=== PATIENT | female | born 1960 | race Caucasian/White ===

== ENCOUNTER 2022-03-11 18:42 | Emergency (ER) | payer SELFPAY ==
[~2022-03-11] VITALS: Ht 157.5 cm; Wt 68.0 kg
[~2022-03-11 18:42] MED LIST: BUPROPION HCL150 M1 OR; BUPROPION300 MG PO; FIORICET PO; LEVOTHYROXIN50 MCG PO; LEXAPRO20 MG PO; PRAVASTATIN20 MG PO; PRILOSEC40 MG PO; TYLENOL500 MG OR; WELLBUTRIN XL PO; ZOFRAN ODT4 MG PO; ZOLPIDEM10 M1 PO
[2022-03-11 18:52] VITALS: BP 128/103
[2022-03-11 18:54] VITALS: BP 147/87
[2022-03-11 19:00] VITALS: BP 130/78
[2022-03-11 19:44] LABS: HEMATOCRIT 33.2 % (37.0-47.0); HEMOGLOBIN 10.8 g/dl (12.0-16.0); IMMATURE GRANULOCYTES 0.2 % (0.0-5.0); MEAN CELL VOLUME 88.3 fL CALC (80.0-100.0); MEAN CORPUSCULAR HGB 28.7 pG CALC (26.0-32.0); MEAN CORPUSCULAR HGB CONC 32.5 g/dL CAL (32.0-36.0); NEUT# 1.38 thou/uL (2.00-7.15); RED BLOOD COUNT 3.76 mill/uL (4.20-5.60); RED CELL DISTRI WIDTH 13.2 % (11.5-15.5)
[2022-03-11 20:00] VITALS: BP 136/68
[2022-03-11 20:44] LABS: URINE BILIRUBIN - DIPSTICK NEGATIVE (NEGATIVE); URINE BLOOD DIPSTICK NEGATIVE (NEGATIVE); URINE COLOR YELLOW; URINE GLUCOSE - DIPSTICK NEGATIVE (NEGATIVE); URINE KETONE NEGATIVE (NEGATIVE); URINE PH 6.5 (4.5-8.0); URINE PROTEIN - DIPSTICK NEGATIVE (NEG-TRACE); URINE SPECIFIC GRAVITY 1.015; URINE UROBILINOGEN - DIPSTICK 0.2 E.U./dL (0.2)
[2022-03-11 20:45] LABS: URINE LEUK ESTERASE MODERATE (NEGATIVE); URINE NITRITE - DIPSTICK NEGATIVE (Negative)
[2022-03-11 20:57] LABS: URINE RBC 0-2 RBC/hpf (0-5); URINE SQUAMOUS EPITHELIAL CELL FEW EPI/hpf (0-FEW)
[2022-03-11 21:02] LABS: ALBUMIN 4.3 g/dL (3.2-5.0); ALKALINE PHOSPHATASE 114 u/l (38-126); BUN 13 mg/dL (8-23); BUN/CREATININE RATIO 16 (12-20 (CALC)); CHLORIDE 106 mmol/l (95-108); CREATININE 0.8 mg/dL (0.5-1.0); GFR FOR AFR.AMER. > 60 ML/MIN (>=60 (CALC)); GFR OTHER RACES > 60 ML/MIN (>=60 (CALC)); POTASSIUM 4.1 mmol/l (3.5-5.1); SODIUM 141 mmol/l (137-146); TOTAL PROTEIN 6.9 g/dL (6.3-8.2)
[2022-03-11 21:03] LABS: ANION GAP 11 (6-22 (CALC)); BILIRUBIN, TOTAL 0.3 mg/dL (0.0-1.4); CARBON DIOXIDE 28 mmol/l (22-30); SGOT/AST 46 u/l (9-36)
[2022-03-11 21:14] LABS: MYOGLOBIN 27 ng/mL (0 - 62)
[2022-03-11 21:33] LABS: TSH, 3RD GENERATION 2.77 uIU/mL (0.47 - 4.68)
[2022-03-11 21:45] VITALS: BP 136/68
== END 2022-03-11 21:45 | disposition home or self-care (01) | DRG 179 ==
LOC: ED 18:42
PROVIDERS: Family Medicine
DX: U07.1 COVID-19 (principal); R53.1 Weakness; R50.9 Fever, unspecified; R51.9 Headache, unspecified; R11.0 Nausea; R19.7 Diarrhea, unspecified; I10 Essential (primary) hypertension

== ENCOUNTER 2024-03-10 08:47 | Day surgery (SDC) | payer MEDICARE ==
[~2024-03-10] VITALS: Ht 157.5 cm; Wt 55.8 kg
[~2024-03-10 08:47] MED LIST changes: +ATORVASTATIN CA20 MG PO; +BUPROPION HCL150 MG PO; +PROTONIX40 M2 PO; +TRAZODONE50 MG PO; +XANAX0.25 MG PO
[2024-03-10] MEDS ORDERED: FAMOTIDINE 10MG/ML 2ML SDV IV ONE (08:52)
[2024-03-10] MEDS ORDERED: LACTATED RINGER'S 1,000 ML IV ONE (08:52)
[2024-03-10 11:59] VITALS: BP 126/72
[2024-03-10] MEDS ORDERED: PROPOFOL 200 MG/20 ML VIAL IV ONE (12:39)
[2024-03-10] MEDS ORDERED: LIDOCAINE HCL 2% 2ML SDV IV ONE (12:39)
[2024-03-10] MEDS ORDERED: ESMOLOL HCL 10 MG/ML VIAL IV ONE (12:43)
== END 2024-03-10 10:58 | disposition home or self-care (01) ==
LOC: ORM 08:47
PROVIDERS: ATTEND Internal Medicine Gastroenterology
PROC: 0DB48ZX Excision of Esophagogastric Junction, Via Natural or Artificial Opening Endoscopic, Diagnostic (ICD-10-PCS; principal; 2024-03-10)
PROC: 0DB78ZX Excision of Stomach, Pylorus, Via Natural or Artificial Opening Endoscopic, Diagnostic (ICD-10-PCS; 2024-03-10)
DX: K21.00 Gastro-esophageal reflux disease with esophagitis, without bleeding (principal); K44.9 Diaphragmatic hernia without obstruction or gangrene; K29.50 Unspecified chronic gastritis without bleeding; E03.9 Hypothyroidism, unspecified; E78.5 Hyperlipidemia, unspecified; F41.9 Anxiety disorder, unspecified; F32.A Depression, unspecified; Z79.899 Other long term (current) drug therapy